=== PATIENT | female | born 1960 | race Caucasian/White ===

== ENCOUNTER 2020-12-16 09:05 | Emergency (ER) | payer MEDICAID, OTHER ==
[~2020-12-16] VITALS: Ht 157.5 cm; Wt 70.3 kg
[2020-12-16 09:42] VITALS: BP 143/84
[2020-12-16] MEDS ORDERED: TETANUS-DIPTH-ACEL PERTUSSIS 0.5ML SYR Tdap IM ONE (09:45)
== END 2020-12-16 10:18 | disposition home or self-care (01) ==
LOC: ER 09:05
DX: S61.210A Laceration without foreign body of right index finger without damage to nail, initial encounter (principal); W26.0XXA Contact with knife, initial encounter; Y93.89 Activity, other specified; Y92.89 Other specified places as the place of occurrence of the external cause; Y99.8 Other external cause status
CPT/HCPCS: 12001; 90471; 90715

== ENCOUNTER → 2021-06-11 | Emergency (ER) | payer MEDICAID | END | disposition left against medical advice (07) | LOC: ER 22:36 | DX: R07.9 Chest pain, unspecified (principal); Z53.21 Procedure and treatment not carried out due to patient leaving prior to being seen by health care provider ==

== ENCOUNTER 2021-09-07 18:31 | Emergency (ER) | payer MEDICAID ==
[~2021-09-07] VITALS: Ht 157.5 cm; Wt 70.3 kg
[2021-09-07 18:41] VITALS: BP 143/79
[2021-09-07] MEDS ORDERED: KETOROLAC TROMETH 60MG/2ML VIAL IM ONE (21:15)
== END 2021-09-07 21:13 | disposition home or self-care (01) ==
LOC: ER 18:31
DX: S62.502A Fracture of unspecified phalanx of left thumb, initial encounter for closed fracture (principal); X58.XXXA Exposure to other specified factors, initial encounter; Y93.89 Activity, other specified; Y92.89 Other specified places as the place of occurrence of the external cause; Y99.8 Other external cause status
CPT/HCPCS: 73130; 96372; 99283; J1885

== ENCOUNTER 2021-10-06 15:22 | Emergency (ER) | payer MEDICAID ==
[~2021-10-06] VITALS: Ht 157.5 cm; Wt 70.3 kg
[2021-10-06 15:38] VITALS: BP 119/68
[2021-10-06] MEDS ORDERED: cefTRIAXone SOD 1,000 MG VL IM ONE (17:00)
[2021-10-06] MEDS ORDERED: ACETAMINOPHEN 500 MG TAB PO ONE (17:00)
== END 2021-10-06 17:17 | disposition home or self-care (01) ==
LOC: ER 15:23
DX: S51.852A Open bite of left forearm, initial encounter (principal); L08.9 Local infection of the skin and subcutaneous tissue, unspecified; I10 Essential (primary) hypertension; W55.01XA Bitten by cat, initial encounter; Y93.89 Activity, other specified; Y92.89 Other specified places as the place of occurrence of the external cause; Y99.8 Other external cause status
CPT/HCPCS: 93005; 96372; 99283; J0696